=== PATIENT | female | born 1960 | race Caucasian/White ===

== ENCOUNTER → 2020-07-12 | Outpatient (CLI) | payer OTHER ==
[2016-05-03 09:56] VITALS: BP 137/71
[~2020-07-12] MED LIST: ASPI325T11 PO; ATORVASTATIN CA80 MG PO; AZAT50TA PO; CHOL200027 PO; COLE1TAB2 PO; ESTR1PAT7 TD; HYDR-2761 PO; IBUP-1007 PO; INFL100V IV; LIALDA1.2 GM PO; ONDA4TAB12 PO; OXYC1TAB15 PO; SERT100T PO; TAMS0.4C97 PO; ZOLP10TA PO
[2020-07-12 09:36] LABS: BASO % 1 % (0-3); EOS # 0.1 x10^3/uL (0.0-0.7); EOS % 3 % (0-3); HEMATOCRIT 40.6 % (36.0-47.0); HEMOGLOBIN 13.7 g/dL (12.0-15.5); LYMPH # 1.3 x10^3/uL (1.0-4.8); LYMPH % 35 % (24-48); MEAN CORPUSCULAR HEMOGLOBIN 32 pg (25-35); MEAN CORPUSCULAR HGB CONC 34 g/dL (31-37); MEAN CORPUSCULAR VOLUME 96 fL (79-100); MONO # 0.3 x10^3/uL (0.0-1.1); MONO % 8 % (0-9); NEUT % 54 % (31-73); PLATELET COUNT 203 x10^3/uL (140-400); RED BLOOD COUNT 4.22 x10^6/uL (3.50-5.40); RED CELL DISTRIBUTION WIDTH 14.2 % (11.5-14.5); WHITE BLOOD COUNT 3.8 x10^3/uL (4.0-11.0)
[2020-07-12 09:42] LABS: ALBUMIN 3.8 g/dL (3.4-5.0); ANION GAP 12 (6-14); BLOOD UREA NITROGEN 19 mg/dL (7-20); CALCIUM 9.3 mg/dL (8.5-10.1); CARBON DIOXIDE 25 mmol/L (21-32); CHLORIDE 106 mmol/L (98-107); GFR 56.9; GLUCOSE 88 mg/dL (70-99); POTASSIUM 4.5 mmol/L (3.5-5.1); SODIUM 143 mmol/L (136-145)
[2020-07-12 09:46] LABS: PROTHROMBIN TIME PATIENT 12.1 SEC (11.7-14.0)
[2020-07-12 10:14] LABS: C-REACTIVE PROTEIN < 0.5 mg/L (0-3.3)
--- NOTE | 2020-07-12 13:20 | EKG ---
[facility] [address] [place] [address] Test Date: 2020-07-12 Test Time: 13:10:11 Pat Name: VIVIEN JONES Department: Room: Gender: F Director Bioinformatics: : 1960 Requested By: SHAMIKA MOREIRA Order Number: [id number] Reading MD: Wilton Malloy Measurements Intervals [place] Rate: 53 P: 67 [place]: 160 QRS: 28 QRSD: 100 T: 51 QT: 448 QTc: 427 Interpretive Statements SINUS RHYTHM NORMAL ECG RI6.02 No previous ECG available for comparison Electronically Signed On 07-12-2020 16:20:02 DIGITAL ASSET MANAGER by Wilton Malloy
--- NOTE | 2020-07-12 14:22 | RAD ---
EXAM: Chest, 2 views. HISTORY: Hyperlipidemia. COMPARISON: None. FINDINGS: 2 views the chest are obtained. There is no infiltrate, pleural effusion or pneumothorax. T he heart is normal in size. IMPRESSION: No acute pulmonary finding. Electronically signed by: Catherine Palomino MD (07/12/2020 2:20 PM) [id number]
[2020-07-13 00:11] LABS: HEMOGLOBIN A1C 4.7 % (4.8-5.6)
== END ==
LOC: SURGPAT 12:55
PROVIDERS: ATTEND Orthopaedic Surgery
DX: Z01.818 Encounter for other preprocedural examination (principal); M17.12 Unilateral primary osteoarthritis, left knee; M16.52 Unilateral post-traumatic osteoarthritis, left hip; Z96.652 Presence of left artificial knee joint
CPT/HCPCS: 36415; 71046; 80048; 82040; 82306; 83036; 85025; 85610; 85730; 86140; 87641; 93005

== ENCOUNTER → 2020-07-29 | Outpatient (CLI) | payer OTHER ==
[2016-05-03 09:56] VITALS: BP 137/71
[~2020-07-29] MED LIST changes: -HYDR-2761 PO; -IBUP-1007 PO; -ONDA4TAB12 PO; -TAMS0.4C97 PO
== END ==
LOC: LAB 09:49
PROVIDERS: ATTEND Orthopaedic Surgery
DX: Z01.812 Encounter for preprocedural laboratory examination (principal); M17.12 Unilateral primary osteoarthritis, left knee; Z20.822 Contact with and (suspected) exposure to COVID-19
CPT/HCPCS: U0003

== ENCOUNTER 2020-08-02 06:39 | Observation (INO) | payer OTHER ==
[2020-08-02] VITALS (7 sets, daily range): BP systolic 87–109; BP diastolic 30–95
[~2020-08-02] VITALS: Ht 170.2 cm; Wt 85.7 kg
[~2020-08-02 06:39] MED LIST changes: +ACETAMINOPHEN 500 MG TABLET PO PRN; -ASPI325T11 PO; +CELECOXIB 100 MG CAPSULE. PO PRN; +HYDROmorphone 2 MG/ML VIAL IVP PRN; +MORPHINE SULFATE 2 MG/ML VIAL. IVP PRN; -OXYC1TAB15 PO; +PROCHLORPERAZINE 10 MG/2 ML VIAL. IVP PRN; +TRANEXAMIC ACID 1,000 MG in IV NS 50ML -- 1ST BAG INJ ONE; +TV=100ml MORPHINE 5 MG, KETOROLAC 30 MG, ROPIVacaine 0.5% PF 60 ML, EPINEPH... INT ART ONE; +fentaNYL PF VIAL 100 MCG/2 ML VIAL IVP PRN
[2020-08-02] MEDS ORDERED: BUPIVACAINE-EPI 0.25% 30 ML VIAL KIT. ONE (07:06)
[2020-08-02] MEDS ORDERED: TRANEXAMIC ACID in NS IVPB 50 ML ONE ×2 (07:06→07:11)
[2020-08-02] MEDS ORDERED: VANCOMYCIN 1 GM VIAL. ONE ×2 (07:06→07:20)
[2020-08-02] MEDS ORDERED: TOBRAMYCIN POWDER 1.2 GM VIAL. ONE (07:07)
[2020-08-02] MEDS ORDERED: TRANEXAMIC ACID 1,000 MG/10 ML VIAL. ONE (07:11)
[2020-08-02] MEDS ORDERED: MIDAZOLAM HCL/PF 2 MG/2 ML VIAL. ONE (07:16)
[2020-08-02] MEDS ORDERED: fentaNYL PF VIAL 250 MCG/5 ML VIAL ONE (07:17)
[2020-08-02] MEDS ORDERED: ROCURONIUM 50 MG/5 ML VIAL. ONE (07:18)
[2020-08-02] MEDS: IV RINGERS,LACTATED 1000ML 1,000 ML IV SCH ×2 (07:21→11:26)
[2020-08-02] MEDS ORDERED: TRANEXAMIC ACID 1,000 MG in IV NS 50ML -- 2ND BAG INJ ONE (08:00)
--- NOTE | 2020-08-02 08:24 | PDOC1 ---
History and Physical Date of Admission Date of Admission DATE: 08/02/20 TIME: 08:16 Identification/Chief Complaint Chief Complaint Left knee osteoarthritis pain Source Source: Chart review, Patient History of Present Illness History of Present Illness 59-year-old with left knee pain. She is retired and has a history of colorectal cancer in remission (diagnosed in 2017), managed with ileostomy.She describes a history of bilateral knee pain over many years, for which she has seen Dr. Cary and received steroid injections, last several years ago. Patient locates severe pain in both knees with noticed varus deformity. Her pain makes squatting or kneeling virtually impossible and impacts her ability to participate in daily and desired activities. She is able to walk for exercise although this is quite difficult for her. She takes Tylenol for pain. Past Medical History Past Medical History High cholesterol cancer - Colon, rectal. Ileostomy. Cardiovascular: Hyperlipidemia GI: Other Heme/Onc: Cancer Past Surgical History Past Surgical History Ileostomy Family History Family History: Cancer, Hypertension Social History Smoke: No ALCOHOL: none Current Medications Current Medications Current Medications Fentanyl Citrate (Fentanyl 2ml Vial) 25 mcg PRN Q5MIN PRN IVP MILD PAIN 1-3; Start 08/02/20 at 06:00; Stop 08/03/20 at 05:59 Fentanyl Citrate (Fentanyl 2ml Vial) 50 mcg PRN Q5MIN PRN IVP MODERATE PAIN 4- 6; Start 08/02/20 at 06:00; Stop 08/03/20 at 05:59 Morphine Sulfate (Morphine Sulfate) 1 mg PRN Q10MIN PRN IVP SEVERE PAIN 7-10; Start 08/02/20 at 06:00; Stop 08/03/20 at 05:59 Ringer's Solution 1,000 ml @ 30 mls/hr Q24H IV Last administered on 08/02/20at 07:21; Start 08/02/20 at 06:00; Stop 08/02/20 at 17:59 Hydromorphone HCl (Dilaudid) 0.5 mg PRN Q10MIN PRN IVP SEVERE PAIN 7-10, 2nd CHOICE; Start 08/02/20 at 06:00; Stop 08/03/20 at 05:59 Prochlorperazine Edisylate (Compazine) 5 mg PACU PRN PRN IVP NAUSEA, MRX1; Start 08/02/20 at 06:00; Stop 08/03/20 at 05:59 Celecoxib (CeleBREX) 400 mg 1X PREOP PRN PO PRIOR TO PROCEDURE; Start 08/02/20 at 06:00; Stop 08/02/20 at 15:00 Acetaminophen (Tylenol) 1,000 mg 1X PREOP PRN PO PRIOR TO PROCEDURE Last administered on 08/02/20at 07:21; Start 08/02/20 at 06:00; Stop 08/02/20 at 18:00 Cefazolin Sodium/ Dextrose 50 ml @ 100 mls/hr 1X PREOP PRN IV PRIOR TO PROCEDURE; Start 08/02/20 at 06:00; Stop 08/02/20 at 18:00 Morphine Sulfate 5 mg/Ketorolac Tromethamine 30 mg/Ropivacaine 60 ml/Epinephrine HCl 0.5 mg/Sodium Chloride 100 ml @ 100 mls/hr 1X PERIOP ONCE INT ART ; Start 08/02/20 at 06:00; Stop 08/02/20 at 06:59; Status DC Tranexamic Acid 50 ml @ 50 mls/hr 1X PERIOP ONCE INJ ; Start 08/02/20 at 06:00; Stop 08/02/20 at 06:59; Status DC Tranexamic Acid 50 ml @ 50 mls/hr 1X PERIOP ONCE INJ ; Start 08/02/20 at 08:00; Stop 08/02/20 at 08:59 Bupivacaine HCl/ Epinephrine Bitart (Sensorcain-Epi 0.25% Kit) 30 ml STK-MED ONCE .ROUTE ; Start 08/02/20 at 07:06; Stop 08/02/20 at 07:07; Status DC Tranexamic Acid 50 ml @ As Directed STK-MED ONCE .ROUTE ; Start 08/02/20 at 07:06; Stop 08/02/20 at 07:07; Status DC Vancomycin HCl (Vancomycin) 1 gm STK-MED ONCE .ROUTE ; Start 08/02/20 at 07:06; Stop 08/02/20 at 07:07; Status DC Tobramycin Sulfate (Tobramycin Powder) 1.2 gm STK-MED ONCE .ROUTE ; Start 08/02/20 at 07:07; Stop 08/02/20 at 07:07; Status DC Tranexamic Acid (Cyklokapron) 1,000 mg STK-MED ONCE .ROUTE ; Start 08/02/20 at 07:11; Stop 08/02/20 at 07:11; Status DC Tranexamic Acid 50 ml @ As Directed STK-MED ONCE .ROUTE ; Start 08/02/20 at 07:11; Stop 08/02/20 at 07:11; Status DC Midazolam HCl (Versed) 2 mg STK-MED ONCE .ROUTE ; Start 08/02/20 at 07:16; Stop 08/02/20 at 07:17; Status DC Fentanyl Citrate (Fentanyl 5ml Vial) 250 mcg STK-MED ONCE .ROUTE ; Start 08/02/20 at 07:17; Stop 08/02/20 at 07:17; Status DC Rocuronium [place] (Zemuron) 50 mg STK-MED ONCE .ROUTE ; Start 08/02/20 at 07:18; Stop 08/02/20 at 07:19; Status DC Vancomycin HCl (Vancomycin) 1 gm STK-MED ONCE .ROUTE ; Start 08/02/20 at 07:20; Stop 08/02/20 at 07:20; Status DC Active Scripts Active Reported Ambien (Zolpidem Tartrate) 10 Mg Tablet 10 Mg PO PRN QHS PRN Zoloft (Sertraline Hcl) 100 Mg Tablet 200 Mg PO DAILY Atorvastatin Calcium 80 Mg Tablet 80 Mg PO HS Allergies Allergies: Coded Allergies: No Known Medication Allergies (Unverified Allergy, Unknown, 05/10/16) iodine (Verified Adverse Reaction, Intermediate, Diarrhea, 05/03/16) ROS Review of System OPHTHALMOLOGY: Blurred vision none. Double vision denies. Change in vision none. ENT: Hearing loss none. Change in voice denies. Rhinorrhea none. CARDIOLOGY: Palpitations none. Shortness of breath denies. Chest pain denies. CONSTITUTIONAL: Fever denies. Chills denies. Weight gain denies. Weakness none. weight loss denies. Fatigue none. GASTROENTEROLOGY: Diarrhea denies. Vomiting none. Dysphagia none. UROLOGY: Voiding normally yes. Hematuria none. MUSCULOSKELETAL: Chronic back or neck pain denies. Swelling of the feet, hands, ankles and /or legs denies. Joint pain both knees. Tingling/numbness no. DERMATOLOGY: Rash denies. Lumps none. NEUROLOGY: Dizziness/lightheadedness denies. Double vision, temporary blindness denies. Tingling/numbness none. PSYCHOLOGY: Change in mood or personality denies. Memory loss none. ENDOCRINOLOGY: Obesity denies. Fatigue none. Weight loss none. HEMATOLOGY/LYMPH: Hepatitis denies. Enlarged lymph nodes denies. Physical Exam General: Alert, Cooperative HEENT: Atraumatic Lungs: Normal air movement Heart: RRR Abdomen: Soft, Other (Ileostomy) Extremities: No cyanosis, Normal pulses, Other (The LEFT knee shows a mildly antalgic gait. There is varus alignment. No masses. No detectable effusion. Tenderness on the joint lines. Range of motion is 3-120 degrees. There is crepitus with range of motion, and pain at the extremes of motion. The knee is stable to varus and valgus stress without subluxation or laxity. Muscle strength is normal for the quadriceps 5/5. The hamstring strength is 5/5. The skin is normal with no scars, rashes, lesions or ulcers. Light touch sensation is intact. No edema and no varicosities. Dorsalis pedis pulse is intact and capillary refill is normal) Skin: No breakdown, No significant lesion Neuro: Normal speech, Sensation intact Psych/Mental Status: Mental status NL, Mood NL Vitals Vitals Vital Signs Date Time Temp Pulse Resp B/P (MAP) Pulse Ox O2 Delivery O2 Flow Rate FiO2 08/02/20 07:13 97.0 62 18 137/62 100 Room Air 97.0 Images Images [facility] [address] [place] [address] IMAGING REPORT Signed PATIENT: VIVIEN JONES ACCOUNT: [id number] : 1960 LOCATION: [facility] AGE: 59 SEX: F EXAM STATUS: PRE CLI ORD. PHYSICIAN: SHAMIKA MOREIRA MD REASON: PROCEDURE: KNEE BILAT 2V EXAM: Bilateral knees, standing view; bilateral knees, 2 views. HISTORY: Pain. COMPARISON: None. FINDINGS: 3 views of both knees are obtained. There is severe left greater than right knee tricompartmental joint space narrowing, subchondral sclerosis, subchondral cyst formation and marginal spurring. There is associated left greater than right genu varus. There is moderate bilateral lateral and severe bilateral patellofemoral compartment spurring. There is no fracture, dislocation or subluxation. There are trace bilateral knee effusions. IMPRESSION: Severe left greater than right knee medial compartment predominant tricompartmental osteoarthrosis of both knees with genu varus and trace joint effusions. Electronically signed by: Catherine Dos Santos MD (06/10/2020 3:39 PM) [facility] DICTATED and SIGNED BY: CATHERINE DOS SANTOS MD DATE: 06/10/201536 VTE Prophylaxis Ordered VTE Prophylaxis Devices: Yes VTE Pharmacological Prophylaxi: Yes Assessment/Plan Assessment/Plan She has osteoarthritis of both knees, quite severe given her age. We reviewed her x-rays together and discussed the natural history of the condition as well as the risks, benefits, and alternatives to treatment. Given her failure of more conservative treatments, progressive deformity, and continued severe pain, I believe she would most benefit from knee replacement. Plan for left total knee arthroplasty. We discussed the potential risks of infection, neurovascular injury, fracture, bleeding, blood clots, malalignment, need for revision surgery, or other potential surgical or anesthetic complications. In addition, we went over possible risks associated with her history of colorectal cancer. I recommended the robotic NAVIO instrumentation and we discussed my reasoning. We also discussed postoperative treatment and expectations including dental antibiotic prophylaxis and residual numbness over the knee. She is here today for elective left total knee arthroplasty. Justifications for Admission Other Justification SHAMIKA MOREIRA MD Aug 02, 2020 08:23
[2020-08-02] MEDS ORDERED: PROPOFOL 10 MG/ML (20ML) VIAL. IV ONE (08:51)
[2020-08-02] MEDS ORDERED: LIDOCAINE 2% PF 5 ML VIAL. ONE (08:51)
[2020-08-02] MEDS ORDERED: ONDANSETRON PF 4 MG/2 ML VIAL. ONE (08:51)
[2020-08-02] MEDS ORDERED: DEXAMETHASONE SOD PHOS 4 MG/ML VIAL ONE (08:51)
[2020-08-02] MEDS ORDERED: KETAMINE HCL IN NACL, ISO-OSM 50 MG/5 ML SYRINGE ONE (08:57)
[2020-08-02] MEDS ORDERED: SEVOFLURANE > 120 MINUTES. IH ONE (09:53)
[2020-08-02] MEDS ORDERED: NEOSTIGMINE METHYLSULFATE 5 MG/5 ML SYRINGE. ONE (09:54)
[2020-08-02] MEDS ORDERED: GLYCOPYRROLATE 1 MG/5 ML VIAL. ONE (09:54)
--- NOTE | 2020-08-02 10:18 | PDOC4 ---
Operative Note Operative Note Date of Procedure: August 02, 2020 Pre-Op Diagnosis: Unilateral primary osteoarthritis, left knee. M17.12 Post-Op Diagnosis: same Procedure: left total knee arthroplasty with patella resurfacing, robotic assisted, CPT 05030 Surgeon: Shamika Jewell MD Senior Ui Ux Developer: MARY BETH Elizabeth Anesthesia: General EBL: 100 mL Specimens Obtained: left knee bone and soft tissue Complications: none Drains: pain catheter Tourniquet time: 59 Minutes Tourniquet Pressure: 300 mm Hg Indications for Procedure: Knee arthritis pain, affecting quality of life, unrelieved by nonoperative management Findings: Severe osteoarthritis with bone on bone contact medially with full thickness cartilage loss in the patellofemoral and lateral compartments Implants: Robles & Nephew Journey II Total Knee System, Size 5 left bicruciate stabilized Journey II BCS Oxinium femoral component, size 4 left Journey nonporous tibial baseplate, size 3-4 15 mm left Journey II BCS XLPE articular insert, 32 mm oval Sarah II resurfacing patellar component Procedure in Detail: The patient was identified in the preoperative holding area, and the correct left lower extremity was marked by me. The patient was taken to the operating room where the patient was anesthetized by the Department of Anesthesia. Preoperative antibiotics were given intravenously. Tranexamic acid 1 g was given intravenously for intraoperative hemostasis. A "time-out" procedure was performed. The patient was positioned supine on the operative table with a tourniquet on the upper left thigh. A left hip bump and heel bump were attached to the operating table for later intraoperative positioning. The left lower limb was thoroughly scrubbed, then sterile Chloraprep solution was applied, and the limb was draped in sterile fashion. The operating team wore exhaust ventilated hoods with [employer] Personal Protection Toga Zippered Peel-Away protection system. An impervious stockinet and an adhesive drape were used such that the skin was entirely covered. The limb was exsanguinated with an Esmarch bandage, and the tourniquet was inflated. A midline skin incision was made with a scalpel using the patella and tibial tubercle as landmarks. Electrocautery was used for hemostasis. My surgical first assistant used rake retractors and a laparotomy sponge. A medial parapatellar arthrotomy incision was used with extension into the distal quadriceps tendon. The patella was retracted laterally and Hohmann retractors were now used by my surgical first assistant. Excess synovium, the menisci, and the cruciate ligaments were resected sharply. A periarticular multimodal ropivacaine anesthetic injection was used in the suprapatellar pouch and distal quadriceps muscle. The patella was everted and exposed. The patella thickness was measured with a caliper, and then cut freehand with a saw, using caliper measurements to assess the resection. The lateral retinaculum was partially released from the lateral patella using electrocautery. Rongeurs were used to make sure there were no remaining exposed patellar osteophytes medially or laterally. The patella was sized, and then drilled for an oval three-peg patella component. The tibial tracker array for the CORI system was applied to the tibial crest four finger breadths below the tibial tubercle, using percutaneous incisions and bicortical pins. The femoral tracker array was applied outside of the original incision using two separate stab incisions using bicortical pins. Checkpoint verification pins were applied to the femur and tibia. Using the point probe, the medial and lateral malleoli were localized and the locations were stored. The center of the tibia was noted at the anterior cruciate ligament insertion and stored. The center of the femur was marked at the intersection of [place] line with the transepicondylar axis. The hip center calculation was performed with range of motion of the hip. The femur neutral position was identified, and simulated weightbearing was performed with axial compression on the foot. Range of motion without stress was performed and the data collected. Range of motion with valgus stress, and range of motion with varus stress data collection was also performed. Rotational references include the [place]ess line, and the trans-epicondylar axis. The femoral articular surface was now mapped in 3 dimensions using the point probe and digital data collected. The tibial condyle articular surfaces and cortical edges were mapped in 3 dimensions using the point probe including the medial and lateral tibial plateau. Implant planning was now performed on-screen with manipulation of the implant sizes, cut thicknesses and gaps, component rotation, component flexion/extension and component varus/valgus until satisfactory ligament balance, alignment and stability of the knee was expected throughout the range of motion. No additional releases were required because the original dissection medially performed enough of a medial release. My surgical first assistant held a Hohmann retractor, a medial Z-retractor, and an Army-Judson retractor to protect the medial and lateral collateral ligaments, the patellar tendon, the skin and the other soft tissues. The point probe was used to confirm the location of the checkpoint verification pins. The distal femoral surface was now prepared using CORI handpiece for bone removal to the previously planned distal femoral resection. The crosshairs at the pin locations were marked by using a mallet and the point probe for definitive location. A 5-in-1 Journey II cutting guide was then applied and the position was checked with the virtual kane wing from the CORI to ensure proper placement as the pins were applied. The posterior, anterior, and all chamfer cuts were made with the oscillating saw. Excess bone was removed with an osteotome and rongeurs. The tibial cutting guide was applied, positioned using the CORI virtual kane wing, and secured to the upper tibia using three pins at the previously planned location. The virtual kane wing was used to confirm the resection depth, slope and coronal alignment. The upper tibia was cut made with an oscillating saw. My surgical first assistant held Hohmann retractors and a posterior cruciate ligament retractor to protect the medial and lateral collateral ligaments, the patellar tendon, the skin, the peroneal nerve and the other soft tissues. The upper tibia was sized with a trial baseplate. The posterior compartment was cleared of osteophytes and loose bodies. The periarticular anesthetic injection was used in the posterior compartment. The box cut for a posterior stabilized component was made. A preliminary reduction was performed with a trial femur, trial tibial baseplate and trial polyethylene. The CORI system was used to confirm range of motion, and postoper ative stressed gap assessment. The stability was assessed using different thicknesses of tibial articular surface to find satisfactory stability and good range of motion. The rotation of the tibial component was marked on the upper tibia. Final trial reduction was now performed verifying patella tracking and tibiofemoral stability and alignment. The bone pins and tracker arrays were removed, and the checkpoint verification pins were removed. The tibia preparation was completed with a drill, saw, and fin punch at the previously noted rotation. The final implants were verified and opened. Outer gloves were changed by the operating team. Betadine lavage was used. The patients iodine allergy caused diarrhea many years ago, and not a definitive allergy per the patient. The bone cuts were thouroughly irrigated with saline using the [employer] InterPulse device removing all of the Betadine, and then dried with suction and laparotomy sponges. Two packages of Robles + Nephew Rally HV bone cement were mixed in powdered form with Vancomycin 1gm and Tobramycin 1.2 gm, and then vacuum-mixed with the monomer, and placed into a cement gun. The cut surfaces of the bone were thoroughly dried with suction and with laparotomy sponges for cement interdigitation. The final components were cemented into place. The knee was kept at full extension while the cement hardened, and excess cement was removed. Tranexamic acid 1 g was redosed intravenously for additional intraoperative hemostasis. The tourniquet was released, and electrocautery was used for hemostasis. A final periarticular anesthetic injection was used for pain relief. The bone pin sites on the tibial crest were closed with #3-0 Nylon sutures. A final check of [id number] and stability was made, and the polyethylene implant final size was chosen. The polyethylene implant was secured to the tibial baseplate, and the knee was reduced a final time and range of motion and stability was confirmed. Thorough irrigation was used. A pain catheter was inserted. Topical Vancomycin 1 gm was used during the closure. The arthrotomy was closed with interrupted [id number] #1 Vicryl suture. The subcutaneous tissues were approximated initially with #2-0 Vicryl inverted interrupted sutures by my surgical first assistant. Next the subcuticular layer was approximated in a running fashion with #3-0 STRATAFIX suture by my surgical first assistant. The skin incision was then covered and reinforced by my surgical first assistant with Acticoat, followed by a JO ANN single use negative pressure wound therapy dressing Soft roll and an Shun wrap were applied. Needle and sponge counts were correct. There were no apparent complications. The patient returned to the recovery room in stable condition. SHAMIKA JEWELL MD Aug 02, 2020 10:18
[2020-08-02] MEDS ORDERED: PROCHLORPERAZINE 5 MG TABLET. PO PRN (10:30)
[2020-08-02] MEDS ORDERED: fentaNYL PF VIAL 100 MCG/2 ML VIAL IVP PRN (10:30)
[2020-08-02] MEDS ORDERED: 0.9 % SODIUM CHLORIDE 10 ML DISP.SYRIN. IV PRN (10:30)
[2020-08-02] MEDS: IV NORMAL SALINE 1000ML BAG 1,000 ML IV SCH (10:30)
[2020-08-02] MEDS ORDERED: DEXTROSE 50% 25 GM / 50ML DISP.SYRIN. IV PRN (10:30)
[2020-08-02] MEDS ORDERED: METOCLOPRAMIDE HCL 10 MG/2 ML VIAL. IVP PRN (10:30)
[2020-08-02] MEDS ORDERED: diphenhydrAMINE 50 MG/ML VIAL IVP PRN (10:30)
[2020-08-02] MEDS ORDERED: MORPHINE SULFATE 4 MG/ML VIAL. IVP PRN (10:30)
[2020-08-02] MEDS ORDERED: CALCIUM CARBONATE 500 MG TAB.CHEW PO PRN (10:30)
[2020-08-02] MEDS ORDERED: fentaNYL PF VIAL 100 MCG/2 ML VIAL ONE (10:52)
[2020-08-02] MEDS: fentaNYL PF VIAL 100 MCG/2 ML VIAL IVP PRN ×2 (10:55→11:00)
[2020-08-02] MEDS ORDERED: MORPHINE SULFATE 2 MG/ML VIAL. ONE (11:14)
--- NOTE | 2020-08-02 11:39 | RAD ---
EXAM: 2 views left knee DATE: 08/02/2020 10:38 AM INDICATION: Reason: POST OP / Spl. Instructions: / History: COMPARISON: No Prior FINDINGS/ IMPRESSION: Changes of left total knee arthroplasty, in good alignment without definite hardware complication or fracture. Expected postoperative soft tissue changes including intra-articular gas. Electronically signed by: Erick Kimbrough MD (08/02/2020 11:37 AM) [id number]
[2020-08-02] MEDS: ONDANSETRON PF 4 MG/2 ML VIAL. IVP SCH (12:00)
[2020-08-02] MEDS: ONDANSETRON ODT 4 MG TAB.RAPDIS. PO SCH (12:00)
--- NOTE | 2020-08-02 12:12 | NUR ---
Arrived to the unit by bed from PACU. Alert and oriented x's 4. No c/o at this time. Dressing on left leg is d/i with JO ANN. Wiggles toes easily, warm touch and pedal pulses + bilaterally. IVF's intact and infusing. AMY's on both feet. Oriented to room and controls. Side rails up x's 2 with call light in reach. Spouse at bedside. Cont. monitor.
[2020-08-02] MEDS: MULTIVITAMIN with MINERAL TABLET. PO SCH (14:10)
[2020-08-02] MEDS: SERTRALINE 50 MG TABLET. PO SCH (14:10)
[2020-08-02] MEDS: SENNOSIDES/DOCUSATE 8.6/50MG TABLET. PO SCH (14:11)
[2020-08-02] MEDS: oxyCODONE/APAP 5/325 1 TAB TABLET PO PRN ×2 (15:04→20:13)
[2020-08-02] MEDS: KETOROLAC 30MG VIAL 30 MG, BUPIVACAINE MPF 0.25% 20 ML, EPINEPHrine 0.5 MG in TOTAL VOL... INT ART SCH (17:24)
[2020-08-02] MEDS: ZOLPIDEM 5 MG TABLET. PO PRN (20:12)
[2020-08-02] MEDS: ATORVASTATIN CALCIUM 40 MG TABLET. PO SCH (20:12)
[2020-08-02] MEDS: ASPIRIN ENTERIC COATED 325 MG TABLET.DR. PO SCH (20:12)
[2020-08-03 03:00] VITALS: BP 101/59
[2020-08-03] MEDS: KETOROLAC 30MG VIAL 30 MG, BUPIVACAINE MPF 0.25% 20 ML, EPINEPHrine 0.5 MG in TOTAL VOL... INT ART SCH (05:14)
[2020-08-03] MEDS: oxyCODONE/APAP 5/325 1 TAB TABLET PO PRN ×4 (05:18→20:42)
[2020-08-03] MEDS: ONDANSETRON PF 4 MG/2 ML VIAL. IVP SCH ×2 (05:21)
[2020-08-03] MEDS: ONDANSETRON ODT 4 MG TAB.RAPDIS. PO SCH (05:21)
[2020-08-03] MEDS ORDERED: MAGNESIUM HYDROXIDE 2,400 MG/30 ML ORAL.SUSP. PO PRN (06:00)
[2020-08-03 07:00] VITALS: BP 92/42
[2020-08-03] MEDS: SENNOSIDES/DOCUSATE 8.6/50MG TABLET. PO SCH ×2 (09:00→10:11)
--- NOTE | 2020-08-03 10:00 | NUR ---
Pt was transferred from room 420 to 446 after therapy.
[2020-08-03] MEDS: MULTIVITAMIN with MINERAL TABLET. PO SCH (10:10)
[2020-08-03] MEDS: CELECOXIB 100 MG CAPSULE. PO SCH (10:11)
[2020-08-03] MEDS: ASPIRIN ENTERIC COATED 325 MG TABLET.DR. PO SCH ×2 (10:11→20:42)
[2020-08-03] MEDS: SERTRALINE 50 MG TABLET. PO SCH (10:11)
[2020-08-03 10:15] VITALS: BP 94/48
[2020-08-03] MEDS: IV NORMAL SALINE 1000ML BAG 1,000 ML IV SCH (10:30)
[2020-08-03] MEDS ORDERED: ONDANSETRON ODT 4 MG TAB.RAPDIS. PO PRN (12:00)
[2020-08-03] MEDS ORDERED: ONDANSETRON PF 4 MG/2 ML VIAL. IVP PRN (12:00)
--- NOTE | 2020-08-03 14:23 | PDOC ---
PROGRESS NOTES Date of Service DATE: 08/03/20 TIME: 14:20 Subjective Subjective Doing well, but not yet safe with walker for stairs at home. Objective Vital Signs Vital Signs Date Time Temp Pulse Resp B/P (MAP) Pulse Ox O2 Delivery O2 Flow Rate FiO2 08/03/20 11:10 Room Air 08/03/20 10:15 98.1 79 18 94/48 (63) 100 98.1 08/02/20 12:01 8 Physical Exam JO ANN dressing working. JO ANN has spots of bloody drainage. Pain catheter intact. Calf soft and NT. Homans neg. Able to DF and plantarflex foot with no evidence of neurovascular injury nor compartment syndrome. No blisters. Minimal erythema . Moderate swelling as expected. Imaging Postop x-rays and report reviewed by me. Satisfactory TKA without apparent complications. PATIENT: VIVIEN JONES AACCOUNT: [id number] : 1960 LOCATION: [address] [place] [address] AGE: 59 SEX: F EXAM STATUS: ADM IN ORD. PHYSICIAN: SHAMIKA MOREIRA MD REASON: POST OP PROCEDURE: KNEE LEFT 2V EXAM: 2 views left knee DATE: 08/02/2020 10:38 AM INDICATION: Reason: POST OP / Spl. Instructions: / History: COMPARISON: No Prior FINDINGS/ IMPRESSION: Changes of left total knee arthroplasty, in good alignment without definite hardware complication or fracture. Expected postoperative soft tissue changes including intra-articular gas. Electronically signed by: Erick Kimbrough MD (08/02/2020 11:37 AM) [id number] DICTATED and SIGNED BY: ERICK KIMBROUGH MD DATE: 08/02/20 [id number] Assessment Assessment POD 1 after TKA Plan Plan of Care Needs to stay in hospital for PT with walker for safe discharge to home. Continue DVT prophylaxis and PT. Discharge planning Justicifation of Admission Dx: Justifications for Admission: Justification of Admission Dx: Yes SHAMIKA MOREIRA MD Aug 03, 2020 14:23
[2020-08-03] MEDS ORDERED: BISACODYL 10 MG SUPP.RECT. PR PRN (16:00)
[2020-08-03 17:23] VITALS: BP 103/54
[2020-08-03] MEDS: ATORVASTATIN CALCIUM 40 MG TABLET. PO SCH (20:42)
[2020-08-03] MEDS: ZOLPIDEM 5 MG TABLET. PO PRN (20:42)
[2020-08-04] MEDS: oxyCODONE/APAP 5/325 1 TAB TABLET PO PRN ×4 (04:39→16:30)
[2020-08-04 06:05] VITALS: BP 107/55
[2020-08-04] MEDS: SERTRALINE 50 MG TABLET. PO SCH (07:53)
[2020-08-04] MEDS: CELECOXIB 100 MG CAPSULE. PO SCH (07:53)
[2020-08-04] MEDS: MULTIVITAMIN with MINERAL TABLET. PO SCH (07:54)
[2020-08-04] MEDS: ASPIRIN ENTERIC COATED 325 MG TABLET.DR. PO SCH (07:54)
[2020-08-04] MEDS: SENNOSIDES/DOCUSATE 8.6/50MG TABLET. PO SCH (07:55)
[2020-08-04 10:04] LABS: HEMATOCRIT 29.7 % (36.0-47.0); HEMOGLOBIN 9.9 g/dL (12.0-15.5)
--- NOTE | 2020-08-04 15:13 | PATHOLOGY ---
[facility] Accession Number: [id number] . 01 Material submitted: . knee - LEFT KNEE BONE AND TISSUE. Modifiers: left . 01 Clinical history: . OSTEOARTHRITIS . 02 Diagnosis: Segments of bone and soft tissue, left total knee arthroplasty: - Advanced degenerative arthritis. ([facility]PM:[facility] 08/04/2020) QTP 08/04/2020 1340 Local . 02 Electronically signed: . Jones Linn MD, Pathologist NPI- [id number] . 01 Gross description: . The specimen is received in formalin, labeled "Wohlforth, Eve, L knee bone and tissue" and consists of multiple segments of bone including the tibial plateau with yellow lobulated soft tissue measuring 14.8 x 11.7 x 3.0 cm. The meniscus is present. The articular surfaces display eburnation and peripheral osteophytes. Secretary Receptionist tissue is submitted in A1-A2 with A2 following decalcification. (SDY; 08/03/2020) SYU/SYU 08/04/2020 1339 Local . 02 Pathologist provided ICD-10: M17.12 . 02 CPT . 060042, [id number] Specimen Comment: A courtesy copy of this report has been sent to [phone], [phone] Specimen Comment: [id number] Specimen Comment: Report sent to / DR KERN Performed at: 01 [facility] [address], [place] [id number] MD Cheikh Linder MD Phone: [phone] Performed at: 02 [facility] [address] [place], [place] [id number] MD Jones Linn MD Phone: [phone]
--- NOTE | 2020-08-04 18:11 | PDOC ---
PROGRESS NOTES Date of Service DATE: 08/04/20 TIME: 18:10 Subjective Subjective Doing well. Planning for discharge today. Objective Vital Signs Vital Signs Date Time Temp Pulse Resp B/P (MAP) Pulse Ox O2 Delivery O2 Flow Rate FiO2 08/04/20 17:30 96 Room Air 08/04/20 06:05 98.6 70 20 107/55 (72) 98.6 08/02/20 12:01 8 Physical Exam JO ANN dressing change planned. Incision benign. Labs Laboratory Tests Test 08/04/20 09:45 Hemoglobin 9.9 g/dL (12.0-15.5) Hematocrit 29.7 % (36.0-47.0) Mean Corpuscular Hemoglobin Concent 33 g/dL (31-37) Laboratory Tests Test 08/04/20 09:45 Hemoglobin 9.9 g/dL (12.0-15.5) Hematocrit 29.7 % (36.0-47.0) Mean Corpuscular Hemoglobin Concent 33 g/dL (31-37) Assessment Assessment POD #2 after TKA Plan Plan of Long Term today. Oral pain meds. Aspirin BID for DVT prophylaxis. Follow up with my office next week. Home Health PT. Justicifation of Admission Dx: Justifications for Admission: Justification of Admission Dx: Yes SHAMIKA MOREIRA MD Aug 04, 2020 18:11
--- NOTE | 2020-08-04 18:18 | PDOC3 ---
Discharge Summary Visit Information Date of Admission: Aug 02, 2020 Date of Discharge: Aug 04, 2020 Admitting Diagnosis Comment: Osteoarthritis left knee. Aftercare after left total knee arthroplasty. Final Diagnosis same Brief Hospital Course Allergies Allergies Coded Allergies Type Severity Reaction Last Updated Verified iodine Adverse Reaction Intermediate Diarrhea 05/03/16 Yes Vital Signs Vital Signs Date Time Temp Pulse Resp B/P (MAP) Pulse Ox O2 Delivery O2 Flow Rate FiO2 08/04/20 17:30 96 Room Air 08/04/20 06:05 98.6 70 20 107/55 (72) 98.6 Lab Results Laboratory Tests Test 08/04/20 09:45 Hemoglobin 9.9 g/dL (12.0-15.5) Hematocrit 29.7 % (36.0-47.0) Mean Corpuscular Hemoglobin Concent 33 g/dL (31-37) Laboratory Tests Test 08/04/20 09:45 Hemoglobin 9.9 g/dL (12.0-15.5) Hematocrit 29.7 % (36.0-47.0) Mean Corpuscular Hemoglobin Concent 33 g/dL (31-37) Brief Hospital Course 59 year old who presented with knee osteoarthritis, for elective total knee arthroplasty. The patient underwent total knee arthroplasty under general anesthesia the day of admission. Perioperative antibiotics and DVT prophylaxis were used. Postoperatively physical therapy and case management were consulted. The patient progressed and is stable for discharge. Discharge Information Condition at Discharge: Stable Disposition/Orders: D/C to Home Scheduled Atorvastatin Calcium (Atorvastatin Calcium), 80 MG PO HS, (Reported) Sertraline Hcl (Zoloft), 200 MG PO DAILY, (Reported) Scheduled PRN Zolpidem Tartrate (Ambien), 10 MG PO PRN QHS PRN for INSOMNIA, (Reported) Discontinued Medications Cholecalciferol (Vitamin D3) (Vitamin D3), 2,000 UNIT PO BID, (Reported) Colestipol Hcl (Colestipol Hcl), 2 GM PO HS, (Reported) Patient Instructions Patient Instructions Continue to weight bearing as tolerated with walker. Keep JO ANN dressing intact and dry. Cut off JO ANN "tail" and throw away battery pack on the 7th day after surgery. Tape down JO ANN tail Leave JO ANN dressing intact otherwise. Follow up with Dr. Jewell's office in 10-14 days. Call for appointment unless already scheduled. Continue enteric coated aspirin 325 mg by mouth twice a day for 30 days to prevent blood clots. Justicifation of Admission Dx: Justifications for Admission: Justification of Admission Dx: Yes SHAMIKA JEWELL MD Aug 04, 2020 18:18
[2020-08-04] MEDS ORDERED: ASPI325T11 PO (18:27)
[2020-08-04] MEDS ORDERED: OXYC1TAB15 PO (18:28)
--- NOTE | 2020-08-04 18:51 | NUR ---
Patient was discharged from the facility around 1845 with her . JO ANN dressing changed prior and is blinking green. Discharge education completed by this nurse, therapy, and the doctor prior to discharge. Script sent to her pharmacy by Dr Jewell. IV discontinued this morning. NO concerns noted at discharge.
== END 2020-08-04 18:50 | disposition home or self-care (01) ==
LOC: SURG 06:39 → 4 NORTH 10:41 → 4 SOUTHEST 08-03 10:01
PROVIDERS: ADMIT Orthopaedic Surgery; ATTEND Orthopaedic Surgery
DX: M17.0 Bilateral primary osteoarthritis of knee (principal); E78.00 Pure hypercholesterolemia, unspecified; E78.5 Hyperlipidemia, unspecified; Z79.82 Long term (current) use of aspirin; Z91.041 Radiographic dye allergy status; Z85.048 Personal history of other malignant neoplasm of rectum, rectosigmoid junction, and anus; Z85.038 Personal history of other malignant neoplasm of large intestine; Z47.1 Aftercare following joint replacement surgery; Z96.652 Presence of left artificial knee joint; Z98.890 Other specified postprocedural states
CPT/HCPCS: 27447; 36415; 73560; 85014; 85018; 86850; 86900; 86901; 88305; 88311; 96365; 96366; 97110; 97116; 97150; 97162; 97166; 97530; 97535; A4461; C1713; C1769; G0378; G0379; J0171; J0690; J1100; J1885; J2250; J2270; J2704; J2710; J2795; J3010; J3260; J3370; J3490; J7120; J2405

== ENCOUNTER 2020-11-17 16:51 | Emergency (ER) | payer OTHER ==
[~2020-11-17] VITALS: Ht 170.2 cm; Wt 70.0 kg
[~2020-11-17 16:51] MED LIST changes: -ACETAMINOPHEN 500 MG TABLET PO PRN; +ASPI325T11 PO; -CELECOXIB 100 MG CAPSULE. PO PRN; -HYDROmorphone 2 MG/ML VIAL IVP PRN; -MORPHINE SULFATE 2 MG/ML VIAL. IVP PRN; +OXYC1TAB15 PO; -PROCHLORPERAZINE 10 MG/2 ML VIAL. IVP PRN; -TRANEXAMIC ACID 1,000 MG in IV NS 50ML -- 1ST BAG INJ ONE; -TV=100ml MORPHINE 5 MG, KETOROLAC 30 MG, ROPIVacaine 0.5% PF 60 ML, EPINEPH... INT ART ONE; -fentaNYL PF VIAL 100 MCG/2 ML VIAL IVP PRN
[2020-11-17] MEDS ORDERED: KETOROLAC 30 MG/ML VIAL. IVP ONE (17:30)
[2020-11-17] MEDS ORDERED: ONDANSETRON PF 4 MG/2 ML VIAL. IVP ONE ×2 (17:30)
[2020-11-17] MEDS ORDERED: IV NORMAL SALINE 1000ML BAG 1,000 ML IV SCH (17:30)
[2020-11-17 17:32] LABS: BILIRUBIN,URINE MODERATE (NEG); CLARITY,URINE CLOUDY; COLOR,URINE RED; NITRITE,URINE NEGATIVE (NEG); PROTEIN,URINE 100 mg/dL (NEG-TRACE); UROBILINOGEN,URINE 0.2 mg/dL (0.2 mg/dL)
--- NOTE | 2020-11-17 17:34 | PHYS DOC ---
Past Medical History Smoking Status: Never Smoker General Adult EDM: Chief Complaint: FLANK PAIN HPI: HPI: Patient is a 59 year old female who presents with left flank pain that radiates to the left lower abdomen that sharp and shooting that gets better and then worse for the last week. Patient has blood in her urine. Patient states that she went and saw her primary care who put her on ciprofloxacin about a week ago that she has since finished it. She states she never had any urinary symptoms. She gets nauseated when the pain gets bad. She currently rates her pain a 7 out of 10. She states she took a couple of Tylenols earlier. She has a history of colon cancer, knee replacement a colostomy bag. Patient denies vomiting, fever, chest pain, shortness of air, headache, dizziness. Review of Systems: Review of Systems: Constitutional: Denies fever or chills. [] Eyes: Denies change in visual acuity. [] HENT: Denies nasal congestion or sore throat. [] Respiratory: Denies cough or shortness of breath. [] Cardiovascular: Denies chest pain or edema. [] GI: + Left lower abdominal pain, +nausea, denies vomiting, bloody stools or diarrhea. [] : Denies dysuria. + Blood in urine [] Musculoskeletal: Denies back pain or joint pain. [] Integument: Denies rash. [] Neurologic: Denies headache, focal weakness or sensory changes. [] Endocrine: Denies polyuria or polydipsia. [] Lymphatic: Denies swollen glands. [] Psychiatric: Denies depression or anxiety. [] Heart Score: C/O Chest Pain: No Risk Factors: Risk Factors: DM, Current or recent (<one month) smoker, HTN, HLP, family history of CAD, obesity. Risk Scores: Score 0 - 3: 2.5% MACE over next 6 weeks - Discharge Home Score 4 - 6: 20.3% MACE over next 6 weeks - Admit for Clinical Observation Score 7 - 10: 72.7% MACE over next 6 weeks - Early Invasive Strategies Current Medications: Current Medications Medications (Trade) Dose Ordered Sig/Latosha Start Time Stop Time Status Last Admin Dose Admin Ketorolac Tromethamine (Toradol 30mg Vial) 30 mg 1X ONCE 11/17/20 17:30 11/17/20 17:31 Ondansetron HCl (Zofran) 4 mg 1X ONCE 11/17/20 17:30 11/17/20 17:31 Sodium Chloride 1,000 ml @ 1,000 mls/hr Q1H 11/17/20 17:30 11/17/20 18:29 Allergies: Allergies: Allergies Coded Allergies Type Severity Reaction Last Updated Verified No Known Medication Allergies Allergy Unknown 11/17/20 Yes iodine Adverse Reaction Intermediate Diarrhea 05/03/16 Yes Physical Exam: PE: Constitutional: Well developed, well nourished, no acute distress, non-toxic appearance. [] HENT: Normocephalic, atraumatic, bilateral external ears normal, oropharynx moist, no oral exudates, nose normal. [] Eyes: PERRLA, EOMI, conjunctiva normal, no discharge. [] Neck: Normal range of motion, no tenderness, supple, no stridor. [] Cardiovascular:Heart rate regular rhythm, no murmur [] Lungs & Thorax: Bilateral breath sounds clear to auscultation [] Abdomen: Bowel sounds normal, soft, left lower tenderness, no masses, no pulsatile masses. [] Skin: Warm, dry, no erythema, no rash. [] Back: No tenderness, left CVA tenderness. [] Extremities: No tenderness, no cyanosis, no clubbing, ROM intact, no edema. [] Neurologic: Alert and oriented X 3, normal motor function, normal sensory function, no focal deficits noted. [] Psychologic: Affect normal, judgement normal, mood normal. [] EKG: EKG: [] Radiology/Procedures: Radiology/Procedures: [] Impression: [facility] [address] [place] [address] IMAGING REPORT Signed PATIENT: VIVIEN JONES AACCOUNT: [id number] : 1960 LOCATION: ER AGE: 59 SEX: F EXAM STATUS: REG ER ORD. PHYSICIAN: JLUIS GRANT APRN REASON: left flank and left lower abd pain PROCEDURE: CT ABDOMEN PELVIS WO CONTRAST Exam: CT abdomen/pelvis without intravenous contrast Indication: Left flank pain and left lower abdominal Comparison: CT abdomen pelvis 05/10/2016 Technique: Helical CT imaging performed of the abdomen and pelvis without the use of intravenous contrast. Sagittal and coronal reformats were obtained. One or more of the following individualized dose reduction techniques were utilized for this examination: 1. Automated exposure control 2. Adjustment of the mA and/or kV according to patient size 3. Use of iterative reconstruction technique. Findings: Inherently limited evaluation without intravenous contrast. Lower chest: A 3 mm pulmonary nodule in the right lower lobe is unchanged from 2016, no follow-up indicated. The heart is normal in size.. Liver: Normal noncontrast appearance of the liver. Gallbladder/Biliary Tree: Gallbladder is contracted. Bile ducts are unre markable. Pancreas: Normal. Spleen: Normal. Adrenal Glands: Normal. Kidneys/Ureters/Bladder: There is a 5 mm calculus in the mid to distal left ureter at the level of the external iliac arteries and resulting in mild left hydroureteronephrosis. There are left renal calculi measuring up to 3 mm. No right nephrolithiasis or hydronephrosis. The right ureter is normal. The bladder is decompressed, limiting evaluation. . Reproductive Organs: Uterus is surgically absent. No adnexal mass. Stomach, small bowel, and colon: The stomach is normal. There are surgical changes of colectomy. There is an ileostomy in the right lower quadrant. There is no small bowel obstruction. Vasculature: No aortic aneurysm. Mild calcified atherosclerosis. Lymph Nodes: No lymphadenopathy. Peritoneum and retroperitoneum: Mild presacral fat stranding. No free fluid or free air. Bones: No acute osseous abnormality. Impression: 1. Mild left hydroureteronephrosis due to a 5 mm calculus in the mid to distal left ureter. Left nephrolithiasis. 2. Surgical changes of colectomy. Presacral fat stranding may be postsurgical or sequela of radiation. Electronically signed by: Edilma Helm MD (11/17/2020 6:16 PM) [id number] DICTATED and SIGNED BY: EDILMA HELM MD DATE: 11/17/20 [id number] 0 Course & Med Decision Making: Course & Med Decision Making Pertinent Labs and Imaging studies reviewed. (See chart for details) See HPI. Alert and oriented x4. Ambulatory with a steady gait. Speaks in full clear sentences. Skin pink warm and dry. Afebrile. Ambulatory with a steady gait. Abdomen is soft but left lower abdomen is tender. Left CVA tenderness. Dragon Disclaimer: David Disclaimer: This electronic medical record was generated, in whole or in part, using a voice recognition dictation system. Departure Departure Impression: Primary Impression: Kidney stone on left side Disposition: HOME / SELF CARE / HOMELESS Condition: STABLE Referrals: JAMES KERN MD (PCP) Patient Instructions: Diet for Kidney Stones, Kidney Stones Additional Instructions: Follow-up with a urologist of your choice. [facility], [facility], [facility] has urology. We do not have urology at [place]. Drink plenty of fluids. Rest. If you begin having worsening symptoms before he can follow-up with urology I would go to one of those hospitals as they have a urologist. Scripts Ondansetron (ONDANSETRON ODT) 4 Mg Tab.rapdis 1 TAB PO PRN Q6-8HRS, #16 TAB Prov: JLUIS GRANT APRN 11/17/20 Ibuprofen (IBUPROFEN) 600 Mg Tablet 600 MG PO PRN Q6HRS PRN for INFLAMMATION, #26 TAB Prov: JLUIS GRANT APRN 11/17/20 Hydrocodone Bit/Acetaminophen (HYDROCODONE-APAP 5-325 ) 1 Tab Tablet 1 TAB PO PRN Q6HRS PRN for PAIN, #20 TAB 0 Refills Prov: JLUIS GRANT APRN 11/17/20 Tamsulosin Hcl (FLOMAX) 0.4 Mg Cap.er.24h 1 CAP PO DAILY, #30 CAP 11 Refills Prov: JLUIS GRANT APRN 11/17/20 JLUIS GRANT APRN November 17, 2020 17:34
[2020-11-17 17:42] LABS: BASO % 1 % (0-3); EOS # 0.1 x10^3/uL (0.0-0.7); EOS % 2 % (0-3); HEMATOCRIT 34.2 % (36.0-47.0); HEMOGLOBIN 11.8 g/dL (12.0-15.5); LYMPH # 1.3 x10^3/uL (1.0-4.8); LYMPH % 21 % (24-48); MEAN CORPUSCULAR HEMOGLOBIN 32 pg (25-35); MEAN CORPUSCULAR HGB CONC 34 g/dL (31-37); MEAN CORPUSCULAR VOLUME 93 fL (79-100); MONO # 0.5 x10^3/uL (0.0-1.1); MONO % 9 % (0-9); NEUT # 4.2 x10^3/uL (1.8-7.7); NEUT % 68 % (31-73); PLATELET COUNT 184 x10^3/uL (140-400); RED BLOOD COUNT 3.67 x10^6/uL (3.50-5.40); RED CELL DISTRIBUTION WIDTH 14.6 % (11.5-14.5); WHITE BLOOD COUNT 6.2 x10^3/uL (4.0-11.0)
[2020-11-17 17:44] LABS: HYALINE CASTS, URINE MODERATE /HPF; RBC,URINE TNTC /HPF (0-2)
[2020-11-17 17:45] LABS: BACTERIA,URINE 0 /HPF (0-FEW)
[2020-11-17 17:52] LABS: CALCIUM 8.2 mg/dL (8.5-10.1); GFR 56.9; POTASSIUM 4.3 mmol/L (3.5-5.1)
[2020-11-17 17:58] LABS: ALBUMIN 3.3 g/dL (3.4-5.0); ALBUMIN/GLOBULIN RATIO 1.4 (1.0-1.7); TOTAL BILIRUBIN 0.2 mg/dL (0.2-1.0); TOTAL PROTEIN 5.6 g/dL (6.4-8.2)
--- NOTE | 2020-11-17 18:19 | RAD ---
Exam: CT abdomen/pelvis without intravenous contrast Indication: Left flank pain and left lower abdominal Comparison: CT abdomen pelvis 05/10/2016 Technique: Helical CT imaging performed of the abdomen and pelvis without the use of intravenous cont rast. Sagittal and coronal reformats were obtained. One or more of the following individualized dose reduction techniques were utilized for this examinat ion: 1. Automated exposure control 2. Adjustment of the mA and/or kV according to patient size 3. Use of iterative reconstruction technique. Findings: Inherently limited evaluation without intravenous contrast. Lower chest: A 3 mm pulmonary nodule in the right lower lobe is unchanged from 2016, no follow-up ind icated. The heart is normal in size.. Liver: Normal noncontrast appearance of the liver. Gallbladder/Biliary Tree: Gallbladder is contracted. Bile ducts are unremarkable. Pancreas: Normal. Spleen: Normal. Adrenal Glands: Normal. Kidneys/Ureters/Bladder: There is a 5 mm calculus in the mid to distal left ureter at the level of th e external iliac arteries and resulting in mild left hydroureteronephrosis. There are left renal calc basil measuring up to 3 mm. No right nephrolithiasis or hydronephrosis. The right ureter is normal. The bladder is decompressed, limiting evaluation. . Reproductive Organs: Uterus is surgically absent. No adnexal mass. Stomach, small bowel, and colon: The stomach is normal. There are surgical changes of colectomy. Ther e is an ileostomy in the right lower quadrant. There is no small bowel obstruction. Vasculature: No aortic aneurysm. Mild calcified atherosclerosis. Lymph Nodes: No lymphadenopathy. Peritoneum and retroperitoneum: Mild presacral fat stranding. No free fluid or free air. Bones: No acute osseous abnormality. Impression: 1. Mild left hydroureteronephrosis due to a 5 mm calculus in the mid to distal left ureter. Left neph rolithiasis. 2. Surgical changes of colectomy. Presacral fat stranding may be postsurgical or sequela of radiation . Electronically signed by: Edilma Helm MD (11/17/2020 6:16 PM) [id number]
[2020-11-17] MEDS ORDERED: TAMS0.4C97 PO (18:28)
[2020-11-17] MEDS ORDERED: IBUP-1007 PO (18:28)
[2020-11-17] MEDS ORDERED: HYDR-2761 PO (18:28)
[2020-11-17] MEDS ORDERED: ONDA4TAB12 PO (18:28)
[2020-11-17 18:37] VITALS: BP 141/63
[2020-11-17] MEDS ORDERED: fentaNYL PF VIAL 100 MCG/2 ML VIAL IVP ONE (18:45)
== END 2020-11-17 18:54 | disposition home or self-care (01) ==
LOC: ER 16:51
DX: N13.2 Hydronephrosis with renal and ureteral calculous obstruction (principal); Z93.3 Colostomy status; Z85.038 Personal history of other malignant neoplasm of large intestine; Z88.8 Allergy status to other drugs, medicaments and biological substances
CPT/HCPCS: 36415; 74176; 80053; 81001; 85025; 87086; 96361; 96374; 96375; 99284; J1885; J2405; J3010; J7030

== ENCOUNTER → 2020-12-15 | Outpatient (CLI) | payer OTHER ==
[2020-11-17 18:37] VITALS: BP 141/63
[~2020-12-15] MED LIST changes: +HYDR-2761 PO; +IBUP-1007 PO; +ONDA4TAB12 PO; +TAMS0.4C97 PO
--- NOTE | 2020-12-15 15:14 | KCIC ---
XR ABDOMEN 1V Clinical Indication: Reason: RENAL CALCULI / Spl. Instructions: Known left renal stone for 2 mths. So me left flank pain. Comparison: CT abdomen and pelvis without contrast, November 17, 2020. Findings: Left ureteral calculus is not identified radiographically. Left renal calculi are not seen radiograph ically, perhaps due to small size. There is no organomegaly. There is right lower quadrant ostomy. Th ere is no dilated bowel. There is suture material in the left abdomen. Lung bases are clear. Degenera tive endplate spurring of the lumbar spine. IMPRESSION: Left ureteral calculus is not identified. Electronically signed by: Howard Cuba MD (12/15/2020 3:12 PM) [facility]
== END ==
LOC: KCIC 09:59
PROVIDERS: ATTEND Urology
DX: N20.1 Calculus of ureter (principal)
CPT/HCPCS: 74018